=== PATIENT | male | born 1985 | race African-American/Black ===

== ENCOUNTER 2018-05-08 23:00 | Emergency (ER) | payer SELFPAY ==
[2018-05-09 00:03] VITALS: BP 138/93; PULSE 95; TEMP 97.3; BMI 22.1
[2018-05-09] MEDS ORDERED: DIPHTH,PERTUSS(ACELL),TET 0.5 ML DISP.SYRIN IM ONE ×2 (00:21→00:29)
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
== END 2018-05-09 00:47 | disposition home or self-care (01) ==
LOC: JER 23:00
PROC: 3E0234Z Introduction of Serum, Toxoid and Vaccine into Muscle, Percutaneous Approach (ICD-10-PCS; principal; 2018-05-08)
PROC: 0HQ0XZZ Repair Scalp Skin, External Approach (ICD-10-PCS; 2018-05-08)
DX: S01.01XA Laceration without foreign body of scalp, initial encounter (principal); X99.0XXA Assault by sharp glass, initial encounter; Y93.89 Activity, other specified; Y92.512 Supermarket, store or market as the place of occurrence of the external cause; Y99.8 Other external cause status
CPT/HCPCS: 90715; 99281-25

== ENCOUNTER 2018-08-18 08:23 | Emergency (ER) | payer SELFPAY ==
[2018-08-18 08:30] VITALS: BP 113/79; PULSE 89; TEMP 98; BMI 21.4
--- NOTE | 2018-08-18 08:43 | PDOC ---
History of Present Illness - General Chief Complaint: Eye Problem Stated Complaint: RT PINK EYE Time Seen by Provider: 08/18/18 08:41 History Source: Patient Exam Limitations: No Limitations Past History - Travel Traveled outside of the country in the last 30 days: No Close contact w/someone who was outside of country & ill: No - Past Medical History Allergies/Adverse Reactions: Allergies Allergy/AdvReac Type Severity Reaction Status Date / Time No Known Allergies Allergy Verified 05/09/18 00:44 Home Medications: Ambulatory Orders Erythromycin 0.5% Eye Ointment [Erythromycin 0.5% Eye Ointment -] 1 applic OD TID #1 tube 08/18/18 COPD: No - Suicide/Smoking/Psychosocial Hx Smoking History: Current every day smoker Have you smoked in the past 12 months: Yes Information on smoking cessation initiated: No Hx Alcohol Use: Yes Drug/Substance Use Hx: Yes Review of Systems - Review of Systems Able to Perform ROS?: Yes Comments:: 08/18/18 08:41 CONSTITUTIONAL: Absent: fever, chills, diaphoresis, generalized weakness, malaise, loss of appetite HEENT: Present: R eye redness and itching Absent: rhinorrhea, nasal congestion, throat pain, throat swelling, difficulty swallowing, mouth swelling, ear pain, eye pain , visual Changes RESPIRATORY: Absent: cough, shortness of breath, dyspnea with exertion, orthopnea, wheezing, stridor, hemoptysis SKIN: Absent: rash, itching, pallor NEUROLOGIC: Absent: headache, focal weakness or paresthesias, dizziness, unsteady gait, seizure, mental status changes, bladder or bowel incontinence Is the patient limited Azeri proficient: No *Physical Exam - Vital Signs Last Vital Signs Temp Pulse Resp BP Pulse Ox 98.0 F 89 18 113/79 100 08/18/18 08:27 08/18/18 08:27 08/18/18 08:27 08/18/18 08:27 08/18/18 08:27 - Physical Exam Comments: 08/18/18 08:42 GENERAL: The patient is awake, alert, and fully oriented, in no acute distress. HEAD: Normal with no signs of trauma. EYES: Pupils equal, round and reactive to light, extraocular movements intact, sclera anicteric, erythema and tearing to the R conjunctiva. L conjunctiva is normal. EXTREMITIES: Normal range of motion, no edema. NEUROLOGICAL: Normal speech, normal gait. PSYCH: Normal mood, normal affect. SKIN: Warm, Dry, normal turgor, no rashes or lesions noted. Medical Decision Making - Medical Decision Making 08/18/18 08:48 The patient is a 33-year-old male with no past medical history who presents to the ER with 1 day of right eye redness and drainage. He states that the eyes also swollen. He states that it started yesterday at work and progressively got worse overnight. He denies symptoms in the left eye. Denies fevers, chills , cough, sore throat, runny nose and difficulty breathing, and visual changes. A/P: Conjunctivitis On exam of the left eye is red and tearing. The eyelids are mildly edematous of the right eye. Left eye appears normal We will treat as a conjunctivitis with erythromycin ointment. Prescription sent to the patient's pharmacy. Also recommend symptomatically treatment. Ophthalmology follow-up given. Discharge home I discussed the physical exam findings, ancillary test results and final diagnoses with the patient. I answered all of the patient's questions. The patient was satisfied with the care received and felt comfortable with the discharge plan and treatment plan. The Patient agrees to follow up with the primary care physician/specialist within 24-72 hours. Return precautions were given. *DC/Admit/Observation/Transfer Diagnosis at time of Disposition: Conjunctivitis Qualifiers: Conjunctivitis type: acute Acute conjunctivitis type: unspecified Laterality: right Qualified Code(s): H10.31 - Unspecified acute conjunctivitis, right eye - Discharge Dispostion Disposition: HOME Condition at time of disposition: Stable Decision to Admit order: No - Referrals Referrals: Marcela Carrasco MD [Staff Physician] - - Patient Instructions Printed Discharge Instructions: DI for Conjunctivitis Additional Instructions: You have conjunctivitis. This is an eye infection. Please use erythromycin ointment twice a day to the affected eye for one week. Please wash her hands frequently Do not wear contact lenses until your infection clears Follow up with ophthalmology if her symptoms do not improve within a week. Return to the ER for visual changes, blurry vision, or any new or worsening symptoms. - Post Discharge Activity Forms/Work/School Notes: Back to Work
[2018-08-18] MEDS ORDERED: ERYTHROMYCIN 0.5% OPHTHALMIC OINTMENT 3.5 GM TUBE OD ONE (08:52)
[2018-08-18] MEDS ORDERED: ERYTHROMYCIN 0.5% OPHTHALMIC OINTMENT 3.5 GM TUBE ONE (08:56)
== END 2018-08-18 09:00 | disposition home or self-care (01) ==
LOC: JERFT 08:23
DX: H10.31 Unspecified acute conjunctivitis, right eye (principal); F17.210 Nicotine dependence, cigarettes, uncomplicated
CPT/HCPCS: 99281-25

== ENCOUNTER 2021-04-10 10:18 | Emergency (ER) | payer OTHER ==
[2021-04-10 12:17] VITALS: BMI 21.7
[2021-04-10] MEDS ORDERED: SODIUM CHLORIDE 1,000 ML IV STA (13:36)
[2021-04-10] MEDS ORDERED: ACETAMINOPHEN 1000 MG/100 ML VIAL IVPB ONE (13:36)
[2021-04-10] MEDS ORDERED: ONDANSETRON 4 MG/2 ML VIAL IVPUSH ONE (13:36)
[2021-04-10] MEDS ORDERED: ACETAMINOPHEN INJECTION 100 ML IVPB ONE (14:16)
[2021-04-10] MEDS ORDERED: ONDANSETRON 4 MG/2 ML VIAL ONE (14:16)
[2021-04-10 14:41] LABS: BASO % 0.9 % (0-2.0); EOS % 0.2 % (0-4.5); HEMATOCRIT 44.2 % (35.4-49); HEMOGLOBIN 15.1 GM/dL (11.7-16.9); LYMPH % 33.3 % (8-40); MCH 31.7 pg (25.7-33.7); MCHC 34.2 g/dl (32.0-35.9); MEAN CELL VOLUME 92.6 fl (80-96); MEAN PLT VOLUME 8.1 fl (7.5-11.1); MONO % 16.9 % (3.8-10.2); NEUT % 48.7 % (42.8-82.8); PLATELET COUNT 274 10^3/uL (134-434); RBC 4.77 M/mm3 (4.00-5.60); RDW 14.1 % (11.9-15.9); WHITE BLOOD COUNT 5.7 K/mm3 (4.0-10.0)
[2021-04-10 14:59] LABS: CHLORIDE 102 mmol/L (98-107); SODIUM 134 mmol/L (136-145)
[2021-04-10 15:01] LABS: CALCIUM 8.8 mg/dL (8.5-10.1)
[2021-04-10 15:02] LABS: ALBUMIN 3.3 g/dl (3.4-5.0); ANION GAP 8 MMOL/L (8-16); BLOOD UREA NITROGEN 11.2 mg/dL (7-18); CO2 24 mmol/L (21-32); GLUCOSE,RANDOM 81 mg/dL (74-106); MAGNESIUM 2.2 mg/dL (1.8-2.4)
[2021-04-10 15:05] LABS: CREATININE 0.9 mg/dL (0.55-1.3); SGOT/AST 21 U/L (15-37); SGPT/ALT 24 U/L (13-61)
[2021-04-10 15:06] LABS: TOT PROT 8.9 g/dl (6.4-8.2)
[2021-04-10 15:07] LABS: BILIRUBIN,TOTAL 0.2 mg/dL (0.2-1)
[2021-04-10 15:08] LABS: ALK PHOS 90 U/L (45-117)
[2021-04-10 17:18] VITALS: BP 157/100; PULSE 76; TEMP 97.3
== END 2021-04-10 17:33 ==
LOC: JER 10:18
PROC: 3E033GC Introduction of Other Therapeutic Substance into Peripheral Vein, Percutaneous Approach (ICD-10-PCS; principal; 2021-04-10)
DX: R07.9 Chest pain, unspecified (principal); B34.9 Viral infection, unspecified
CPT/HCPCS: 36415; 71046-TC-FY; 71275-TC; 80053; 82550; 83735; 84484; 85025; 93005; 93010; 96361; 96374; 96375; 99285-25; C9803; J0131; U0003; U0005

== ENCOUNTER 2022-02-09 20:54 | Emergency (ER) | payer OTHER ==
[2022-02-09 21:02] VITALS: BP 139/93; PULSE 98; RESP 18; TEMP 97.6; BMI 22.5
[2022-02-09] MEDS ORDERED: SULFAMETHOXAZOLE/TRIMETHOPRIM 800MG/160MG D.S. TABLET PO ONE (22:50)
[2022-02-09] MEDS ORDERED: BACITRACIN 15 GM TUBE TOPICAL OINTMENT TP ONE (22:51)
[2022-02-09] MEDS ORDERED: SULFAMETHOXAZOLE/TRIMETHOPRIM 800MG/160MG D.S. TABLET ONE (22:53)
[2022-02-09] MEDS ORDERED: BACITRACIN 15 GM TUBE TOPICAL OINTMENT ONE (22:56)
== END 2022-02-09 23:15 | disposition home or self-care (01) ==
LOC: JERFT 20:54
DX: S90.822A Blister (nonthermal), left foot, initial encounter (principal); R22.42 Localized swelling, mass and lump, left lower limb; X50.3XXA Overexertion from repetitive movements, initial encounter
CPT/HCPCS: 93971-TC; 99284-25